=== PATIENT | male | born 1980 | race Caucasian/White ===

== ENCOUNTER 2023-12-25 04:04 | Day surgery (SDC) | payer OTHER ==
[2023-12-20 17:14] VITALS: BMI 25.8
[2023-12-25 12:57] VITALS: RESP 20
[2023-12-25] MEDS ORDERED: MIDAZOLAM HCL 2 MG/2 ML SINGLE DOSE VIAL ONE (14:29)
[2023-12-25] MEDS ORDERED: PROPOFOL 20 ML ONE (14:29)
[2023-12-25] MEDS ORDERED: FENTANYL CITRATE/PF 50 MCG/ML VIAL ONE (14:29)
[2023-12-25 17:36] VITALS: BP 127/86; PULSE 75; TEMP 97
== END 2023-12-25 17:30 | disposition home or self-care (01) ==
LOC: JASU-SURG 04:04
PROVIDERS: ATTEND Urology
PROC: 0TF4XZZ Fragmentation in Left Kidney Pelvis, External Approach (ICD-10-PCS; principal; 2023-12-25 16:00)
DX: N20.0 Calculus of kidney (principal)
CPT/HCPCS: 82962